=== PATIENT | male | born 1975 | race Hispanic/Latino ===

== ENCOUNTER 2020-12-06 19:12 | Emergency (ER) | payer OTHER ==
--- NOTE | 2020-12-06 21:35 | ER ---
Nurse's Notes [facility] Name: Varun Beck Age: 45 yrs Sex: Male : 1975 Arrival Date: 12/06/2020 Time: 19:18 Bed DIS7 Private MD: Diagnosis: Upper respiratory infection Presentation: 12/06 19:52 Chief complaint: Patient states: Headache, runny nose, cough began yesterday. Pt states vg1 that eyes hurt, but denies blurred vision and photophobia; also denies NVD. Coronavirus screen: Client denies travel out of the [place] in the last 14 days. Client presents with at least one sign or symptom that may indicate coronavirus-19. Standard/surgical mask placed on the client. Ebola Screen: Patient negative for fever greater than or equal to 101.5 degrees Fahrenheit, and additional compatible Ebola Virus Disease symptoms. Initial Sepsis Screen: Does the patient meet any 2 criteria? No. Patient's initial sepsis screen is negative. Does the patient have a suspected source of infection? No. Patient's initial sepsis screen is negative. Risk Assessment: Do you want to hurt yourself or someone else? Patient reports no desire to harm self or others. Onset of symptoms was December 05, 2020. 19:52 Method Of Arrival: [facility]ulatory [facility] 19:52 Acuity: SOY 4 vg1 Triage Assessment: 19:54 Headache History: The patient has had previous headaches and this one is similar to vg1 previous episodes. General: Appears in no apparent distress. comfortable, Behavior is calm, cooperative. Pain: Complains of pain in right eye and left eye and head Pain currently is 5 out of 10 on a pain scale. Pain began 1 day ago. Neuro: Level of Consciousness is awake, alert, obeys commands, Oriented to person, place, time, situation, Reports headache Denies blurred vision photophobia. 21:36 Pain: Also complains of no other associated symptoms. bb Historical: - Allergies: 19:54 No Known Allergies; vg1 - Home Meds: 19:54 Metformin Oral [Active]; vg1 - PMHx: 19:54 Diabetes mellitus; vg1 - Immunization history:: Adult Immunizations up to date, Client reports receiving the 2nd dose of the Covid vaccine. - Social history:: Smoking status: Patient reports the use of cigarette tobacco products, smokes one-half pack cigarettes per day. Screenin:34 Abuse screen: Denies threats or abuse. Nutritional screening: No deficits noted. bb Tuberculosis screening: No symptoms or risk factors identified. Fall Risk None identified. Assessment: 21:34 General: Appears in no apparent distress. Pain: Complains of pain in headache. Neuro: bb Level of Consciousness is awake, alert, obeys commands. Cardiovascular: Capillary refill < 3 seconds Patient's skin is warm and dry. Respiratory: Respiratory effort is even, unlabored, Respiratory pattern is regular. GI: No signs and/or symptoms were reported involving the gastrointestinal system. Derm: Skin is pink, warm \T\ dry. Musculoskeletal: Circulation, motion, and sensation intact. 21:43 Reassessment: Patient is alert, oriented x 3, equal unlabored respirations, skin bb warm/dry/pink. pt verbalized understanding of and agrees to plan of care discharge instructions given pt ambulated with steady gait to exit. Vital Signs: 19:52 BP 117 / 86; Pulse 86; Resp 16; Temp 98.2; Pulse Ox 98% ; Weight 68.04 kg; Height 5 ft. vg1 7 in. (170.18 cm); Pain 5/10; 21:43 BP 127 / 79; Pulse 79; Resp 16 S; Temp 97.6(TE); Pulse Ox 97% on R/A; bb 19:52 Body Mass Index 23.49 (68.04 kg, 170.18 cm) vg1 ED Course: 19:18 Patient arrived in ED. bp1 19:54 Triage completed. vg1 19:54 Arm band placed on Patient placed in waiting room, Patient notified of wait time. vg1 20:01 COVID swab sent to lab. Flu and/or RSV swab sent to lab. vg1 21:23 Ariel eBll MD is Attending Physician. pkl 21:33 Ophelia Hernandez RN is Primary Nurse. bb 21:34 Patient has correct armband on for positive identification. bb 21:34 No provider procedures requiring assistance completed. Patient did not have IV access bb during this emergency room visit. Administered Medications: No medications were administered Outcome: 21:34 Discharge ordered by . pkl 21:44 Discharged to home ambulatory. bb 21:44 Condition: stable 21:44 Discharge instructions given to patient, Instructed on discharge instructions, follow up and referral plans. Demonstrated understanding of instructions, follow-up care. 21:44 Patient left the ED. bb Signatures: Ariel Bell MD MD pkl Ballard, Brenda RN RN Meg Tinoco RN RN vg1 Dominique Castillo
--- NOTE | 2020-12-06 21:35 | EDPHYS ---
Physician Documentation [facility] Name: Varun Beck Age: 45 yrs Sex: Male : 1975 Arrival Date: 12/06/2020 Time: 19:18 Bed DIS7 Private MD: ED Physician Ariel Bell HPI: 12/06 21:29 This 45 yrs old Male presents to ER via Ambulatory with complaints of pkl Headache, Runny Nose, Cough. 21:29 The patient or guardian reports cough, described as mild, with no sputum, running nose. pkl Onset: The symptoms/episode began/occurred yesterday. Associated signs and symptoms: Pertinent positives: headache. Historical: - Allergies: 19:54 No Known Allergies; vg1 - Home Meds: 19:54 Metformin Oral [Active]; vg1 - PMHx: 19:54 Diabetes mellitus; vg1 - Immunization history:: Adult Immunizations up to date, Client reports receiving the 2nd dose of the Covid vaccine. - Social history:: Smoking status: Patient reports the use of cigarette tobacco products, smokes one-half pack cigarettes per day. ROS: 21:29 Eyes: Negative for blurry vision. pkl 21:29 ENT: Positive for nasal discharge. 21:29 Neck: Negative for stiffness. 21:29 Cardiovascular: Negative for chest pain. 21:29 Respiratory: Positive for cough, with no reported sputum. 21:29 Abdomen/GI: Negative for abdominal pain, nausea, vomiting, and diarrhea. 21:29 Back: Negative for acute changes. 21:29 : Negative for urinary symptoms. 21:29 MS/extremity: Negative for acute changes. 21:29 Skin: Negative for rash. 21:29 Neuro: Positive for headache, Negative for altered mental status, loss of consciousness. Exam: 21:29 Head/Face: Normocephalic, atraumatic. Eyes: Pupils equal round and reactive to light, pkl extra-ocular motions intact. Lids and lashes normal. Conjunctiva and sclera are non-icteric and not injected. Cornea within normal limits. Periorbital areas with no swelling, redness, or edema. ENT: Nares patent. No nasal discharge, no septal abnormalities noted. Tympanic membranes are normal and external auditory canals are clear. Oropharynx with no redness, swelling, or masses, exudates, or evidence of obstruction, uvula midline. Mucous membranes moist. Neck: Trachea midline, no thyromegaly or masses palpated, and no cervical lymphadenopathy. Supple, full range of motion without nuchal rigidity, or vertebral point tenderness. No Meningismus. Chest/axilla: Normal chest wall appearance and motion. Nontender with no deformity. No lesions are appreciated. Cardiovascular: Regular rate and rhythm with a normal S1 and S2. No gallops, murmurs, or rubs. Normal PMI, no JVD. No pulse deficits. Respiratory: Lungs have equal breath sounds bilaterally, clear to auscultation and percussion. No rales, rhonchi or wheezes noted. No increased work of breathing, no retractions or nasal flaring. Abdomen/GI: Soft, non-tender, with normal bowel sounds. No distension or tympany. No guarding or rebound. No evidence of tenderness throughout. Back: No spinal tenderness. No costovertebral tenderness. Full range of motion. Skin: Warm, dry with normal turgor. Normal color with no rashes, no lesions, and no evidence of cellulitis. MS/ Extremity: Pulses equal, no cyanosis. Neurovascular intact. Full, normal range of motion. Neuro: Awake and alert, GCS 15, oriented to person, place, time, and situation. Cranial nerves II-XII grossly intact. Motor strength 5/5 in all extremities. Sensory grossly intact. Cerebellar exam normal. Normal gait. Vital Signs: 19:52 BP 117 / 86; Pulse 86; Resp 16; Temp 98.2; Pulse Ox 98% ; Weight 68.04 kg; Height 5 ft. vg1 7 in. (170.18 cm); Pain 5/10; 21:43 BP 127 / 79; Pulse 79; Resp 16 S; Temp 97.6(TE); Pulse Ox 97% on R/A; bb 19:52 Body Mass Index 23.49 (68.04 kg, 170.18 cm) vg1 MDM: 21:23 Patient medically screened. pkl 21:32 Data reviewed: vital signs, nurses notes, lab test result(s). ED course: Discussed lab pkl results with patient. Advised to follow up with PCP in 2 to 3 days. Patient understood instructions. 12/06 19:59 Order name: Flu vg1 12/06 19:59 Order name: COVID-19 : Document "Date of Symptom Onset" if Symptomatic. vg1 12/06 19:59 Order name: Influenza Screen (A ; Complete Time: 21:29 EDMS 12/06 21:13 Order name: SARS-COV-2 RT PCR; Complete Time: 21:29 EDMS Administered Medications: No medications were administered Disposition Summary: 12/06/20 21:34 Discharge Ordered Location: Home pkl Problem: new pkl Symptoms: have improved pkl Condition: Stable pkl Diagnosis - Upper respiratory infection pkl Followup: pkl - With: Private Physician - When: 2 - 3 days - Reason: Re-evaluation by your physician Forms: - Medication Reconciliation Form pkl - Thank You Letter pkl - Antibiotic Education pkl - Prescription Opioid Use pkl Signatures: Dispatcher [employer] EDAriel Hinton MD MD pkl Meg Ojeda RN RN vg1 Corrections: (The following items were deleted from the chart) 20:09 19:59 CORONAVIRUS ordered. EDPA EDMS
[2020-12-06 22:25] VITALS: BP 127/79; TEMP 97.6; O2SAT 97
== END 2020-12-06 21:44 | disposition home or self-care (01) ==
LOC: ER 19:12
DX: J06.9 Acute upper respiratory infection, unspecified (principal); Z20.822 Contact with and (suspected) exposure to COVID-19; E11.9 Type 2 diabetes mellitus without complications; Z79.84 Long term (current) use of oral hypoglycemic drugs; F17.210 Nicotine dependence, cigarettes, uncomplicated
CPT/HCPCS: 87804 ×2; 99283; U0003